=== PATIENT | male | born 1975 ===

== ENCOUNTER 2024-02-22 06:33 | Day surgery (SDC) | payer BC, SELFPAY ==
[2024-02-22 07:45] VITALS: BMI 54.8
[2024-02-22 07:49] VITALS: BP 146/87
[2024-02-22 08:01] LABS: Glucose - Point of Care 124 mg/dl (70-99)
[2024-02-22 08:55] VITALS: BP 127/78
[2024-02-22 09:10] VITALS: BP 136/88
== END 2024-02-22 09:35 | disposition home or self-care (01) ==
LOC: GI 06:33
PROVIDERS: ATTENDING PHYSICIAN Internal Medicine Gastroenterology
PROC: 0DBN8ZX Excision of Sigmoid Colon, Via Natural or Artificial Opening Endoscopic, Diagnostic (ICD-10-PCS; 2024-02-22)
PROC: 0DBP8ZX Excision of Rectum, Via Natural or Artificial Opening Endoscopic, Diagnostic (ICD-10-PCS; 2024-02-22)
DX: Z12.11 Encounter for screening for malignant neoplasm of colon (principal); D12.5 Benign neoplasm of sigmoid colon; D12.8 Benign neoplasm of rectum; K64.8 Other hemorrhoids; K57.30 Diverticulosis of large intestine without perforation or abscess without bleeding
CPT/HCPCS: 45385; 88305; 82962